=== PATIENT | female | born 1965 | race Caucasian/White ===

== ENCOUNTER 2023-02-25 15:11 | Observation (INO) ==
[2023-02-25 17:24] LABS: BASOPHILS # (AUTO) 0.1 X10^3/uL (0.0-0.1); BASOPHILS % (AUTO) 0.8 % (0.2-1.0); EOSINOPHILS # (AUTO) 0.1 x10^3/uL (0.0-0.2); EOSINOPHILS % (AUTO) 1.1 % (0.9-2.9); HEMATOCRIT 43.6 % (36.0-47.0); HEMOGLOBIN 14.9 g/dL (12.0-16.0); LYMPHOCYTES # (AUTO) 2.3 X10^3/uL (1.3-2.9); LYMPHOCYTES % (AUTO) 19.7 % (21.0-51.0); MEAN CORPUSCULAR HGB CONC 34.3 g/dL (33.0-35.0); MEAN CORPUSCULAR VOLUME 93.5 fL (80.0-100.0); MEAN PLATELET VOLUME 7.6 fL (7.4-11.0); MONOCYTES # (AUTO) 0.6 x10^3/uL (0.3-0.8); MONOCYTES % (AUTO) 5.6 % (0.0-13.0); NEUTROPHILS # (AUTO) 8.4 x10^3/uL (2.2-4.8); NEUTROPHILS % (AUTO) 72.8 % (42.0-75.0); PLATELET COUNT 372 X10^3/uL (150.0-450.0); RED BLOOD COUNT 4.66 X10^6/uL (3.5-5.4); RED CELL DISTRIBUTION WIDTH 12.8 % (11.6-16.5); WHITE BLOOD COUNT 11.6 X10^3/uL (3.6-10.0)
[2023-02-25 17:34] LABS: ALANINE AMINOTRANSFERASE 37 Units/L (12-78); ALBUMIN 3.7 g/dL (3.4-5.0); ALKALINE PHOSPHATASE 109 Units/L (46-116); ASPARTATE AMINO TRANSFERASE 40 Units/L (15-37); BLOOD UREA NITROGEN 12 mg/dL (7-18); CALCIUM 9.1 mg/dL (8.5-10.1); CARBON DIOXIDE 28.4 mmol/L (21-32); CHLORIDE 103 mmol/L (98-107); CREATININE 0.83 mg/dL (0.55-1.02); GLUCOSE 92 mg/dL (65-99); SODIUM 138 mmol/L (136-145); TOTAL PROTEIN 7.1 g/dL (6.4-8.2); eGFR NON BLACK RACES > 60 (>60)
--- NOTE | 2023-02-25 19:25 | ED.ABDFE ---
HPI Time Seen Time Seen by Provider: 02/25/23 19:25 PCP Primary Care Physician: Brad Patiño Doctors Chief Complaint Comments: At 05:00am thius morning patient awoke with abdl pain that was stabbing. Silvia's wanted to get her to an Ed at that time but she waited until 11:00am and he took her [facility] the ED [facility]. Patient had labs and an abdomen/pelvis CT w/ contrast done.Spouse states that patient was diagnosed with a partial SBO. The ED offered to transfer the patient because they did not have a general surgeon senior electronics technician today. Patient and spouse refused this option and left the Ed. Patient states that she has not eaten today,is not producing flatus. Patient denies:fever,headache,hematemesis,hematochezia,chest pain,dizziness. Chief Complaint:: The patient states that she has stabbing pain in her abdomen. She states that she went to the [place] ER and they told her that they could not admit her due to being full. The states that they did not have a surgeon senior electronics technician, so they came here. COVID-19 Coronavirus risk:travel/contact w/high risk person: No Has patient experienced Coronavirus symptoms: No Source History Provided: Patient Mode of arrival Mode of Arrival: Ambulatory Timing Onset of Chief Complaint: 02/25/23 PMH PMH Past Medical History: Yes Past Medical History: Seizures Past Surgical History: Yes Surgical History: and Hysterectomy Family History History of Family Medical Conditions: Yes Family Medical History: Diabetes Mellitus, Cancer, [place], Heart Failure and Hypertension Social History Does patient currently use any type of tobacco product: No Have you used tobacco products in the last 12 months: No Type of Tobacco Use: None Does any household member use tobacco: No Alcohol Use: None Do you use any recreational Drugs:: No Lives With: Alone Lives Where: Home Travel Risk Coronavirus risk:travel/contact w/high risk person: No Has patient experienced Coronavirus symptoms: No Infectious screening In the last 2 months have you had wt loss of >10#?: NO Have you had fever, night sweats or hemotysis?: No Have you traveled outside the country in the last 6 months?: No Isolation: Standard ROS Review of Systems Constitutional: negative Fever Eyes: No Symptoms Reported ENTM: No Symptoms Reported Respiratoy: No Symptoms Reported Cardiovascular: negative Chest Pain Gastrointestinal/Abdominal: Abdominal Pain (BLQ) and Food Intolerance; negative Diarrhea, Nausea or Vomiting Genitourinary: No Symptoms Reported Neurological: negative Headache Musculoskeletal: No Symptoms Reported Integumentary: No Symptoms Reported Hematologic/Lymphatic: No Symptoms Reported Endocrine: No Symptoms Reported Psychiatric: No Symptoms Reported All Other Systems: Reviewed and Negative PE Vital Signs Vitals: Vital Signs Temperature 98.1 F Pulse Rate [Right Brachial] 80 Pulse Rate 99 Respiratory Rate 17 Respiratory Rate 18 Blood Pressure [Right Arm] 128/79 Blood Pressure 133/73 O2 Sat by Pulse Oximetry 95 O2 Sat by Pulse Oximetry 97 General Limitations: No Limitations and Language Barrier General Appearance: Alert and In No Apparent Distress Head Head Exam: Normal Inspection Eyes Eye exam: Normal Appearance ENT ENT Exam: Normal Exam Neck Neck Exam: Normal Inspection Chest Chest Inspection: Normal Inspection Respiratory Respiratory Exam: Normal Lung Sounds Bilat Respiratory Exam: Bilateral: Clear to Auscultation Cardiovascular Cardiovascular Exam: Regular Rate and Normal Rhythm Abdominal Exam Abdominal Exam: Normal Inspection, Tenderness (suprapubic) and Hypoactive Bowel Sounds Abdominal Tenderness: Suprapubic Rectal Rectal Exam: Deferred Back Back Exam: Normal Inspection Extremeties Extremities Exam: Normal Inspection Neurologic Neurological Exam: Alert and Oriented X3 Psychiatric Psychiatric Exam: Normal Affect and Normal Mood Skin Skin Exam: Warm, Dry and Intact MDM Differential Diagnosis Differential Diagnosis- Considerations may include:: Bowel Obstruction, Diverticular disease, Inflammatory BD, Ischemic Bowel, Pancreatitis and Other (comments) (perforation) COURSE Treatment Treatment: IV access was initiated and patient labs were ordered. A review of patient's abdomen pelvis CT with contrast from [facility] revealed a partial small bowel obstruction. Patient's WBC was 11.6 her CMP was stable. Discussed case with Dr. Bowser. Patient would like to see Dr. Knox. Dr. Bowser will admit the patient to his service and consult Dr. Knox. Patient has been stable in the ED. ROR Labs Reviewed Laboratory Results Reviewed?: Yes 02/25/23 17:04 02/25/23 17:43 Laboratory: WBC 11.6 X10^3/uL (3.6-10.0) H 02/25/23 17:04 RBC 4.66 X10^6/uL (3.5-5.4) 02/25/23 17:04 Hgb 14.9 g/dL (12.0-16.0) 02/25/23 17:04 Hct 43.6 % (36.0-47.0) 02/25/23 17:04 MCV 93.5 fL (80.0-100.0) 02/25/23 17:04 MCH 32.0 pg (27.0-34.0) 02/25/23 17:04 MCHC 34.3 g/dL (33.0-35.0) 02/25/23 17:04 RDW 12.8 % (11.6-16.5) 02/25/23 17:04 Plt Count 372 X10^3/uL (150.0-450.0) 02/25/23 17:04 MPV 7.6 fL (7.4-11.0) 02/25/23 17:04 Neut % (Auto) 72.8 % (42.0-75.0) 02/25/23 17:04 Lymph % (Auto) 19.7 % (21.0-51.0) L 02/25/23 17:04 [place] % (Auto) 5.6 % (0.0-13.0) 02/25/23 17:04 Eos % (Auto) 1.1 % (0.9-2.9) 02/25/23 17:04 Baso % (Auto) 0.8 % (0.2-1.0) 02/25/23 17:04 Neut # (Auto) 8.4 x10^3/uL (2.2-4.8) H 02/25/23 17:04 Lymph # (Auto) 2.3 X10^3/uL (1.3-2.9) 02/25/23 17:04 [place] # (Auto) 0.6 x10^3/uL (0.3-0.8) 02/25/23 17:04 Eos # (Auto) 0.1 x10^3/uL (0.0-0.2) 02/25/23 17:04 Baso # (Auto) 0.1 X10^3/uL (0.0-0.1) 02/25/23 17:04 Absolute Nucleated RBC 0.0 /100WBC 02/25/23 17:04 Sodium 138 mmol/L (136-145) 02/25/23 17:43 Corrected Sodium TNP 02/25/23 17:43 Potassium 4.0 mmol/L (3.5-5.1) 02/25/23 17:43 Chloride 103 mmol/L (98-107) 02/25/23 17:43 Carbon Dioxide 28.4 mmol/L (21-32) 02/25/23 17:43 BUN 12 mg/dL (7-18) 02/25/23 17:43 Creatinine 0.83 mg/dL (0.55-1.02) 02/25/23 17:43 Est GFR (MDRD) Af Amer > 60 (>60) 02/25/23 17:43 Est GFR (MDRD) Non-Af > 60 (>60) 02/25/23 17:43 Glucose 92 mg/dL (65-99) 02/25/23 17:43 Calcium 9.1 mg/dL (8.5-10.1) 02/25/23 17:43 Corrected Calcium TNP 02/25/23 17:43 Total Bilirubin 0.50 mg/dL (0.2-1.0) 02/25/23 17:43 AST 40 Units/L (15-37) H 02/25/23 17:43 ALT 37 Units/L (12-78) 02/25/23 17:43 Alkaline Phosphatase 109 Units/L (46-116) 02/25/23 17:43 Total Protein 7.1 g/dL (6.4-8.2) 02/25/23 17:43 Albumin 3.7 g/dL (3.4-5.0) 02/25/23 17:43 Globulin 3.4 g/dL (2.5-4.5) 02/25/23 17:43 Albumin/Globulin Ratio 1.1 Ratio (1.1-2.1) 02/25/23 17:43 Opioid Opioid Risk Tool Age (Che[place] box if 16-45): No History of Preadolescent Sexual Abuse: No Total: 0 Total Score Risk Category: Low Risk Copyright: Keanu LOWRY predicting aberrant behaviors Discharge Plan Diagnosis Discharge Problem: Abdominal pain, Partial small bowel obstruction Discharge Plan Patient Disposition: 09 ADMITTED INPATIENT Condition: Stable Health Concerns: Post Hospitalization: new medications and changes needed to prevent readmission or further decline. Pt educated and given instructions on all concerns. Plan of Treatment: Continue with present treatment and follow up plan. Pt is to keep follow up appointment as instructed and take medications as ordered. Orders to Discharge Patient Discharge Orders: Transfer (Routine); Ordered 02/25/23 Ordered By: Elisa Barroso Follow ups/Referrals Follow ups/Referrals: MANJULA CERVANTES [Primary Care Provider] - 3 days Instructions Stand Alone Forms: Post Hospital Follow Up Care
[2023-02-25 20:07] LABS: AMYLASE 73 Units/L (25-115); LIPASE 37 Units/L (16-77)
[2023-02-25] MEDS ORDERED: MORPHINE SULFATE INJ 2 MG INJ IVP PRN (22:04)
[2023-02-25] MEDS: NS 1,000 ML IV 1,000 ML IV SCH (22:12)
[2023-02-25] MEDS ORDERED: ZOFRAN INJ 4 MG VIAL IVP PRN (22:33)
[2023-02-25 23:09] VITALS: BMI 31.1
[2023-02-26] MEDS ORDERED: TYLENOL 325 MG TAB PO ONE (02:29)
[2023-02-26 06:00] LABS: ALANINE AMINOTRANSFERASE 31 Units/L (12-78); ALBUMIN 3.3 g/dL (3.4-5.0); ALKALINE PHOSPHATASE 94 Units/L (46-116); ASPARTATE AMINO TRANSFERASE 16 Units/L (15-37); BLOOD UREA NITROGEN 13 mg/dL (7-18); CALCIUM 8.7 mg/dL (8.5-10.1); CARBON DIOXIDE 26.8 mmol/L (21-32); CHLORIDE 105 mmol/L (98-107); COR CA(FOR HYPOALB) 9.3 mg/dL (8.5-10.1); CREATININE 0.88 mg/dL (0.55-1.02); GLUCOSE 108 mg/dL (65-99); POTASSIUM 3.9 mmol/L (3.5-5.1); SODIUM 140 mmol/L (136-145); TOTAL PROTEIN 6.3 g/dL (6.4-8.2); eGFR NON BLACK RACES > 60 (>60)
[2023-02-26 06:10] LABS: BASOPHILS % (AUTO) 0.4 % (0.2-1.0); EOSINOPHILS # (AUTO) 0.2 x10^3/uL (0.0-0.2); EOSINOPHILS % (AUTO) 2.4 % (0.9-2.9); HEMATOCRIT 41.3 % (36.0-47.0); HEMOGLOBIN 13.9 g/dL (12.0-16.0); LYMPHOCYTES % (AUTO) 20.6 % (21.0-51.0); MEAN CORPUSCULAR HEMOGLOBIN 31.5 pg (27.0-34.0); MEAN CORPUSCULAR HGB CONC 33.7 g/dL (33.0-35.0); MEAN CORPUSCULAR VOLUME 93.6 fL (80.0-100.0); MEAN PLATELET VOLUME 7.4 fL (7.4-11.0); MONOCYTES # (AUTO) 0.6 x10^3/uL (0.3-0.8); MONOCYTES % (AUTO) 6.3 % (0.0-13.0); NEUTROPHILS # (AUTO) 6.9 x10^3/uL (2.2-4.8); NEUTROPHILS % (AUTO) 70.3 % (42.0-75.0); PLATELET COUNT 335 X10^3/uL (150.0-450.0); RED BLOOD COUNT 4.41 X10^6/uL (3.5-5.4); RED CELL DISTRIBUTION WIDTH 12.7 % (11.6-16.5); WHITE BLOOD COUNT 9.8 X10^3/uL (3.6-10.0)
[2023-02-26] MEDS: NS 1,000 ML IV 1,000 ML IV SCH (12:07)
[2023-02-26] MEDS: PROTONIX INJ 40 MG VIAL IVP SCH (12:08)
[2023-02-26] MEDS: TYLENOL 325 MG TAB PO PRN ×2 (13:50→20:24)
[2023-02-26] MEDS ORDERED: MILK OF MAGNESIA PO PRN (15:21)
--- NOTE | 2023-02-26 18:00 | DR.H&P ---
H&P History & Physical for Day of: H&P Date: 02/25/23 Chief Complaint Chief Complaint: ABDOMINAL PAIN Allergies Allergies Allergy/AdvReac Type Severity Reaction Status Date / Time azithromycin Allergy Verified 02/25/23 15:16 Sulfa (Sulfonamide Allergy Verified 02/25/23 15:16 Antibiotics) [SULFA] History of Present Illness History of Present Illness: At 05:00am this morning patient awoke with abd pain that was stabbing. Patient's wanted to get her to an Ed at that time but she waited until 11:00am and he took her to the ED in [facility]. Patient had labs and an abdomen/pelvis CT w/ contrast done. Spouse states that patient was diagnosed with a partial SBO. The ED offered to transfer the patient because they did not have a general surgeon disposition clerk today. Patient and spouse refused this option and left the Ed. Patient states that she has not eaten today, is not producing flatus. Patient denies:fever,headache,hematemesis,hematochezia,chest pain,dizziness. Past Medical History Past Medical History: Seizures Past Surgical History Surgical History: and Hysterectomy Family History Family Medical History: Diabetes Mellitus, Cancer, [place], Heart Failure and Hypertension Social History Does patient currently use any type of tobacco product: No Have you used tobacco products in the last 12 months: No Type of Tobacco Use: None Does any household member use tobacco: No Alcohol Use: None Drug Use: None Medications Home Medications: Home Medications Medication Instructions Recorded Confirmed Type lansoprazole 30 mg capsule,delayed 30 mg PO QDAY 02/25/23 02/25/23 History release paroxetine HCl 10 mg tablet 10 mg PO QDAY 02/25/23 02/25/23 History Labs 02/26/23 05:18 02/26/23 05:18 Labs: Laboratory WBC 9.8 X10^3/uL (3.6-10.0) 02/26/23 05:18 RBC 4.41 X10^6/uL (3.5-5.4) 02/26/23 05:18 Hgb 13.9 g/dL (12.0-16.0) 02/26/23 05:18 Hct 41.3 % (36.0-47.0) 02/26/23 05:18 MCV 93.6 fL (80.0-100.0) 02/26/23 05:18 MCH 31.5 pg (27.0-34.0) 02/26/23 05:18 MCHC 33.7 g/dL (33.0-35.0) 02/26/23 05:18 RDW 12.7 % (11.6-16.5) 02/26/23 05:18 Plt Count 335 X10^3/uL (150.0-450.0) 02/26/23 05:18 MPV 7.4 fL (7.4-11.0) 02/26/23 05:18 Neut % (Auto) 70.3 % (42.0-75.0) 02/26/23 05:18 Lymph % (Auto) 20.6 % (21.0-51.0) L 02/26/23 05:18 [place] % (Auto) 6.3 % (0.0-13.0) 02/26/23 05:18 Eos % (Auto) 2.4 % (0.9-2.9) 02/26/23 05:18 Baso % (Auto) 0.4 % (0.2-1.0) 02/26/23 05:18 Neut # (Auto) 6.9 x10^3/uL (2.2-4.8) H 02/26/23 05:18 Lymph # (Auto) 2.0 X10^3/uL (1.3-2.9) 02/26/23 05:18 [place] # (Auto) 0.6 x10^3/uL (0.3-0.8) 02/26/23 05:18 Eos # (Auto) 0.2 x10^3/uL (0.0-0.2) 02/26/23 05:18 Baso # (Auto) 0.0 X10^3/uL (0.0-0.1) 02/26/23 05:18 Absolute Nucleated RBC 0.3 /100WBC 02/26/23 05:18 Sodium 140 mmol/L (136-145) 02/26/23 05:18 Corrected Sodium TNP 02/26/23 05:18 Potassium 3.9 mmol/L (3.5-5.1) 02/26/23 05:18 Chloride 105 mmol/L (98-107) 02/26/23 05:18 Carbon Dioxide 26.8 mmol/L (21-32) 02/26/23 05:18 BUN 13 mg/dL (7-18) 02/26/23 05:18 Creatinine 0.88 mg/dL (0.55-1.02) 02/26/23 05:18 Est GFR (MDRD) Af Amer > 60 (>60) 02/26/23 05:18 Est GFR (MDRD) Non-Af > 60 (>60) 02/26/23 05:18 Glucose 108 mg/dL (65-99) H 02/26/23 05:18 Calcium 8.7 mg/dL (8.5-10.1) 02/26/23 05:18 Corrected Calcium 9.3 mg/dL (8.5-10.1) 02/26/23 05:18 Total Bilirubin 0.40 mg/dL (0.2-1.0) 02/26/23 05:18 AST 16 Units/L (15-37) 02/26/23 05:18 ALT 31 Units/L (12-78) 02/26/23 05:18 Alkaline Phosphatase 94 Units/L (46-116) 02/26/23 05:18 Total Protein 6.3 g/dL (6.4-8.2) L 02/26/23 05:18 Albumin 3.3 g/dL (3.4-5.0) L 02/26/23 05:18 Globulin 3.0 g/dL (2.5-4.5) 02/26/23 05:18 Albumin/Globulin Ratio 1.1 Ratio (1.1-2.1) 02/26/23 05:18 Amylase 73 Units/L (25-115) 02/25/23 17:43 Lipase 37 Units/L (16-77) 02/25/23 17:43 Review of Systems Constitutional: No Symptoms Reported Eyes: No Symptoms Reported ENT: No Symptoms Reported Respiratory: No Symptoms Reported Cardiovascular: No Symptoms Reported Gastrointestinal: Nausea, Vomiting and Abdominal Pain Genitourinary: No Symptoms Reported Musculoskeletal: No Symptoms Reported Skin: No Symptoms Reported Neurological: No Symptoms Reported Physical Exam Vital Signs: Vital Signs Temperature 97.8 F Temperature 97.6 F Pulse Rate [Right Brachial] 86 Pulse Rate [Right Brachial] 80 Respiratory Rate 18 Respiratory Rate 18 Respiratory Rate 18 Respiratory Rate 18 Blood Pressure [Right Arm] 146/69 Blood Pressure [Right Arm] 136/82 O2 Sat by Pulse Oximetry 99 O2 Sat by Pulse Oximetry 97 Oriented: Normal Eyes: Normal Ear: Normal Nose: Normal Throat: Normal Respiratory: RLL Diminished and LLL Diminished Cardiovascular: Normal : Normal Auscultation: Bowel Sounds: Decreased Palpation: Normal Tenderness: Mild Skin: Normal Musculoskeletal: Normal Psychiatric: Anxiety Affect: Anxious Speech Pattern: Clear and Appropriate Assessment/Plan (1) Partial small bowel obstruction: Narrative Support Text: ADMIT, IV HDYRATION BP MONITORING, PAIN CONTROL DR JIM CONSULTING, CT ABDPELVIS ON ADMISSION REPEAT AM KUB Status: Acute (2) Abdominal pain: Status: Acute
[2023-02-26] MEDS: PEPCID TAB 20 MG PO SCH (20:41)
[2023-02-27] MEDS: NS 1,000 ML IV 1,000 ML IV SCH (00:05)
[2023-02-27] MEDS: TYLENOL 325 MG TAB PO PRN (02:11)
[2023-02-27 06:53] LABS: BASOPHILS % (AUTO) 0.4 % (0.2-1.0); EOSINOPHILS # (AUTO) 0.4 x10^3/uL (0.0-0.2); EOSINOPHILS % (AUTO) 4.7 % (0.9-2.9); HEMATOCRIT 39.5 % (36.0-47.0); HEMOGLOBIN 13.5 g/dL (12.0-16.0); LYMPHOCYTES # (AUTO) 2.4 X10^3/uL (1.3-2.9); LYMPHOCYTES % (AUTO) 31.2 % (21.0-51.0); MEAN CORPUSCULAR HEMOGLOBIN 32.2 pg (27.0-34.0); MEAN CORPUSCULAR HGB CONC 34.2 g/dL (33.0-35.0); MEAN PLATELET VOLUME 7.5 fL (7.4-11.0); MONOCYTES # (AUTO) 0.5 x10^3/uL (0.3-0.8); MONOCYTES % (AUTO) 6.8 % (0.0-13.0); NEUTROPHILS # (AUTO) 4.4 x10^3/uL (2.2-4.8); NEUTROPHILS % (AUTO) 56.9 % (42.0-75.0); PLATELET COUNT 311 X10^3/uL (150.0-450.0); RED CELL DISTRIBUTION WIDTH 12.7 % (11.6-16.5); WHITE BLOOD COUNT 7.8 X10^3/uL (3.6-10.0)
[2023-02-27 07:18] LABS: ALANINE AMINOTRANSFERASE 27 Units/L (12-78); ALKALINE PHOSPHATASE 89 Units/L (46-116); ASPARTATE AMINO TRANSFERASE 18 Units/L (15-37); BLOOD UREA NITROGEN 8 mg/dL (7-18); CALCIUM 8.7 mg/dL (8.5-10.1); CARBON DIOXIDE 27.3 mmol/L (21-32); CHLORIDE 107 mmol/L (98-107); COR CA(FOR HYPOALB) 9.5 mg/dL (8.5-10.1); CREATININE 0.87 mg/dL (0.55-1.02); GLUCOSE 85 mg/dL (65-99); POTASSIUM 4.1 mmol/L (3.5-5.1); SODIUM 141 mmol/L (136-145); TOTAL PROTEIN 6.1 g/dL (6.4-8.2); eGFR NON BLACK RACES > 60 (>60)
[2023-02-27] MEDS: PEPCID TAB 20 MG PO SCH (08:37)
[2023-02-27] MEDS: PROTONIX INJ 40 MG VIAL IVP SCH (08:37)
--- NOTE | 2023-02-27 09:18 | DR.PROGNOT ---
HOSPITAL PROGRESS NOTE Progress Note for Day of: Progress Note Date: 02/27/23 Chief Complaint Chief Complaint: feeling better ,no abdominal pain today , no nausea or vomiting .. KUB showed no obstruction .. normal CBC and lytes Past Medical Family Social History Allergies: Allergies azithromycin Allergy (Verified 02/25/23 15:16) Sulfa (Sulfonamide Antibiotics) [SULFA] Allergy (Verified 02/25/23 15:16) Vital Signs Vital Signs: Vital Signs Temperature 98.3 F Pulse Rate [Right Brachial] 70 Respiratory Rate 18 Respiratory Rate 18 Respiratory Rate 18 Blood Pressure [Right Arm] 144/80 O2 Sat by Pulse Oximetry 96 Physical Exam Oriented: Normal Eyes: Normal Ear: Normal Nose: Normal Throat: Normal Cardiovascular: Normal : Normal GI:Auscultation: Normal GI:Palpation: Normal GI: Tenderness: Mild Skin: Normal Musculoskeletal: Normal Psychiatric: Anxiety Affect: Anxious Speech Pattern: Clear and Appropriate Laboratory and Diagnostics 02/27/23 05:40 02/27/23 05:40 Labs: Laboratory WBC 7.8 X10^3/uL (3.6-10.0) 02/27/23 05:40 RBC 4.20 X10^6/uL (3.5-5.4) 02/27/23 05:40 Hgb 13.5 g/dL (12.0-16.0) 02/27/23 05:40 Hct 39.5 % (36.0-47.0) 02/27/23 05:40 MCV 94.0 fL (80.0-100.0) 02/27/23 05:40 MCH 32.2 pg (27.0-34.0) 02/27/23 05:40 MCHC 34.2 g/dL (33.0-35.0) 02/27/23 05:40 RDW 12.7 % (11.6-16.5) 02/27/23 05:40 Plt Count 311 X10^3/uL (150.0-450.0) 02/27/23 05:40 MPV 7.5 fL (7.4-11.0) 02/27/23 05:40 Neut % (Auto) 56.9 % (42.0-75.0) 02/27/23 05:40 Lymph % (Auto) 31.2 % (21.0-51.0) 02/27/23 05:40 [place] % (Auto) 6.8 % (0.0-13.0) 02/27/23 05:40 Eos % (Auto) 4.7 % (0.9-2.9) H 02/27/23 05:40 Baso % (Auto) 0.4 % (0.2-1.0) 02/27/23 05:40 Neut # (Auto) 4.4 x10^3/uL (2.2-4.8) 02/27/23 05:40 Lymph # (Auto) 2.4 X10^3/uL (1.3-2.9) 02/27/23 05:40 [place] # (Auto) 0.5 x10^3/uL (0.3-0.8) 02/27/23 05:40 Eos # (Auto) 0.4 x10^3/uL (0.0-0.2) H 02/27/23 05:40 Baso # (Auto) 0.0 X10^3/uL (0.0-0.1) 02/27/23 05:40 Absolute Nucleated RBC 0.1 /100WBC 02/27/23 05:40 Sodium 141 mmol/L (136-145) 02/27/23 05:40 Corrected Sodium TNP 02/27/23 05:40 Potassium 4.1 mmol/L (3.5-5.1) 02/27/23 05:40 Chloride 107 mmol/L (98-107) 02/27/23 05:40 Carbon Dioxide 27.3 mmol/L (21-32) 02/27/23 05:40 BUN 8 mg/dL (7-18) 02/27/23 05:40 Creatinine 0.87 mg/dL (0.55-1.02) 02/27/23 05:40 Est GFR (MDRD) Af Amer > 60 (>60) 02/27/23 05:40 Est GFR (MDRD) Non-Af > 60 (>60) 02/27/23 05:40 Glucose 85 mg/dL (65-99) 02/27/23 05:40 Calcium 8.7 mg/dL (8.5-10.1) 02/27/23 05:40 Corrected Calcium 9.5 mg/dL (8.5-10.1) 02/27/23 05:40 Total Bilirubin 0.30 mg/dL (0.2-1.0) 02/27/23 05:40 AST 18 Units/L (15-37) 02/27/23 05:40 ALT 27 Units/L (12-78) 02/27/23 05:40 Alkaline Phosphatase 89 Units/L (46-116) 02/27/23 05:40 Total Protein 6.1 g/dL (6.4-8.2) L 02/27/23 05:40 Albumin 3.0 g/dL (3.4-5.0) L 02/27/23 05:40 Globulin 3.1 g/dL (2.5-4.5) 02/27/23 05:40 Albumin/Globulin Ratio 1.0 Ratio (1.1-2.1) L 02/27/23 05:40 Amylase 73 Units/L (25-115) 02/25/23 17:43 Lipase 37 Units/L (16-77) 02/25/23 17:43 Assessment and Plan 1: subsiding SBO. to advance diet , june D/C and we will follow in 10 days . Problem Patient Problems: Patient Problems Abdominal pain (Acute) R10.9 Partial small bowel obstruction (Acute) K56.600
[2023-02-27 09:52] VITALS: BP 141/76; PULSE 96; RESP 20; TEMP 98.9; O2SAT 97
[2023-02-27] MEDS ORDERED: MAALOX or MYLANTA PO PRN (10:09)
--- NOTE | 2023-02-27 11:01 | RAD ---
EXAM:KUB x-ray one viewHISTORY:ABDOMINAL PAIN, PARTIAL SBO -COMPARISON:None.FINDINGS:There is air within a single mildly prominent small bowel loop in the left side of the abdomen. It measures 2.5 cm in diameter. Other mild colonic air is seen with mild retained fecal material. Partial small bowel obstruction could be present but air could be from enteritis.IMPRESSION:Single slightly prominent small bowel loop with air is seen in the left side of the abdomen. This could be from partial small bowel obstruction but can be seen with enteritis.THIS IS AN ELECTRONICALLY VERIFIED FINAL REPORT02/27/2023 10:57 AM - Electronically signed by Boom Jamison MD
== END 2023-02-27 10:45 | disposition home or self-care (01) ==
LOC: MED/SURG 15:11 → ER 15:11 → MED/SURG 22:03
PROVIDERS: ADMIT Internal Medicine; ATTEND Internal Medicine
DX: K66.0 Peritoneal adhesions (postprocedural) (postinfection); I10 Essential (primary) hypertension; K56.690 Other partial intestinal obstruction; R10.84 Generalized abdominal pain